=== PATIENT | female | born 1985 | race Asian ===

== ENCOUNTER 2024-05-02 19:13 | Observation (INO) ==
[2024-05-02 19:51] LABS: ABS Monocytes 0.5 10^3/uL (0.0-0.9); ABS Neutrophils 6.8 10^3/uL (1.5-7.6); ABS Nucleated RBC 0.01 10^3/ul; Eosinophil % 0.1 %; Hematocrit 42.9 % (35-45); Hemoglobin 15.1 g/dL (11.5-14.3); Lymphocyte % 12.3 %; Mean Corpuscular Hemoglobin 32.5 pg (27-33); Mean Corpuscular Hgb Conc 35.1 g/dL (31-36); Mean Corpuscular Volume 92.6 fL (80-97); Mean Platelet Volume 7.8 fL (7.5-11.2); Nucleated Red Blood Cells % 0.1 %/100WBC (0.0-0.8); Platelet Count 305 10^3/uL (150-450); Red Blood Count 4.64 10^6/uL (3.63-4.92); White Blood Count 8.3 10^3/uL (3.8-11.8)
[2024-05-02 20:19] LABS: INR 1.13 (0.83-1.13)
[2024-05-02 20:28] LABS: Albumin 4.8 g/dL (3.2-5.2); Albumin/Globulin Ratio 1.5 (1-3); Creatinine, Serum 0.69 mg/dL (0.51-0.95); Globulin 3.1 g/dL (2-4); Potassium 3.5 mmol/L (3.5-5.0); Total Bilirubin 1.2 mg/dL (0.2-1.0); Total Protein 7.9 g/dL (6.4-8.9); eGFR CKD-EPI 114.6 (>60)
[2024-05-02 21:10] LABS: High Sensitivity Troponin 1 Hr 1976 pg/mL (<15)
[2024-05-02] MEDS: Ondansetron 4 mg VIAL 2 MG/ML 2 ml VIAL IV ONE (21:40)
[2024-05-02] MEDS: Nitroglycerin 0.3 mg TAB SL ONE (21:46)
[2024-05-02] MEDS: Iohexol 350 (CONTRAST) 500 ML MDV IV ONE (23:15)
[2024-05-03 00:07] LABS: High Sensitivity Troponin 3 Hr 3446 pg/mL (<15)
[2024-05-03] MEDS ORDERED: Enoxaparin 100 MG/ML SYR ONE (02:17)
[2024-05-03] MEDS ORDERED: Acetaminophen IV 1 GM/100ML 1,000 MG/100 ML BAG IV PRN (05:19)
[2024-05-03] MEDS: Acetaminophen IV 1 GM/100ML 1,000 MG/100 ML BAG IV ONE (05:27)
[2024-05-03] MEDS ORDERED: Acetaminophen IV 1 GM/100ML 1,000 MG/100 ML BAG IV ONE (05:31)
[2024-05-03 07:32] LABS: Calcium 9.7 mg/dL (8.6-10.3); Creatinine, Serum 0.73 mg/dL (0.51-0.95); Potassium 3.6 mmol/L (3.5-5.0); eGFR CKD-EPI 108.6 (>60)
[2024-05-03 08:23] LABS: High Sensitivity Troponin 1 Hr 3379 pg/mL (<15)
[2024-05-03] MEDS: Sulfur Hexaflouride MICROSPHR 25 MG VIAL IV ONE (09:39)
[2024-05-03 11:07] LABS: Magnesium 2.1 mg/dL (1.9-2.7)
[2024-05-03] MEDS ORDERED: Metoprolol Tartrate 5 mg VIAL 5 ml VIAL (1 mg/ml) ONE ×2 (11:18→11:19)
[2024-05-03] MEDS: Metoprolol Tartrate 5 mg VIAL 5 ml VIAL (1 mg/ml) IV ONE ×2 (11:23→12:57)
[2024-05-03 11:29] LABS: Ferritin 20.3 ng/mL (11-307)
[2024-05-03 11:34] LABS: Folate 14.85 ng/mL (5.90-24.80)
[2024-05-03] MEDS ORDERED: VERAPAMIL 2.5 MG/ML 2 ML VIAL ** 5 mg/2 ml ONE (11:36)
[2024-05-03] MEDS ORDERED: Lidocaine 1% MPF 5 ML VIAL ONE (11:36)
[2024-05-03] MEDS ORDERED: nitroGLYCERIN DRIP 25,000 MCG/250 ML BTL ONE (11:36)
[2024-05-03] MEDS ORDERED: Heparin 2 UNITS/ML 1000 mls 2,000 ML IV ONE (11:36)
[2024-05-03] MEDS ORDERED: Heparin 1,000 UNIT/ML 10 ml (10,000 UNITS) CATHLAB/DIALYSIS ONE (11:36)
[2024-05-03] MEDS ORDERED: fentaNYL 100 mcg/2 ml 50 MCG/ML VIAL ONE ×2 (11:37→12:21)
[2024-05-03] MEDS ORDERED: Midazolam 5 mg/5 ml VIAL 1 mg/ml 5 ml VIAL (5 mg) ONE (11:37)
[2024-05-03 12:38] LABS: HDL Cholesterol 52.4 mg/dL
[2024-05-03] MEDS ORDERED: Sulfur Hexaflouride MICROSPHR 25 MG VIAL ONE (12:45)
[2024-05-03 14:45] LABS: TSH Ultra Thyroid Stim Horm 2.98 mcIU/mL (0.34-5.60)
[2024-05-03 14:47] LABS: Free T3 2.89 pg/mL (2.5-3.9)
[2024-05-03 14:54] LABS: Free T4 1.09 ng/dL (0.61-1.12)
[2024-05-03] MEDS: NS 0.9% 1000 ml BAG 1,000 ML IV SCH (15:56)
[2024-05-04 02:56] LABS: High Sensitivity Troponin 3 Hr 1048 pg/mL (<15)
[2024-05-04 05:24] VITALS: BP 109/70
[2024-05-04 06:35] LABS: ABS Lymphocytes 2.1 10^3/uL (1.0-4.8); ABS Monocytes 0.6 10^3/uL (0.0-0.9); ABS Neutrophils 3.7 10^3/uL (1.5-7.6); Eosinophil % 0.6 %; Hematocrit 42.9 % (35-45); Lymphocyte % 31.6 %; Mean Corpuscular Hemoglobin 32.4 pg (27-33); Mean Corpuscular Hgb Conc 34.9 g/dL (31-36); Mean Corpuscular Volume 92.8 fL (80-97); Mean Platelet Volume 7.6 fL (7.5-11.2); Nucleated Red Blood Cells % 0.1 %/100WBC (0.0-0.8); Platelet Count 290 10^3/uL (150-450); Red Blood Count 4.62 10^6/uL (3.63-4.92); Red Cell Distribution Width 13.1 % (12-17); White Blood Count 6.5 10^3/uL (3.8-11.8)
[2024-05-04 06:59] LABS: Calcium 8.8 mg/dL (8.6-10.3); Creatinine, Serum 0.64 mg/dL (0.51-0.95); Magnesium 2.1 mg/dL (1.9-2.7); Potassium 3.8 mmol/L (3.5-5.0); eGFR CKD-EPI 116.7 (>60)
== END 2024-05-04 10:53 | disposition home or self-care (01) ==
LOC: ED 19:13 → EDHOLD 19:13 → INTOOBSV 05-03 00:01 → SUATTDRO 05-03 00:01 → AA 05-03 11:14 → SUATTDRO 05-03 11:36 → MEDTELE 05-03 16:07
PROVIDERS: ADMIT Internal Medicine; ATTEND Internal Medicine